=== PATIENT | female | born 1970 | race Caucasian/White ===

== ENCOUNTER 2017-03-17 11:04 | Emergency (ER) | payer BC ==
--- NOTE | 2017-03-17 11:33 | ERPHSYRPT ---
- History of Present Illness Time Seen by Provider: 03/17/17 11:27 Historian: patient Exam Limitations: no limitations Patient Subjective Stated Complaint: pt here for abd pain to left side that radiates to right side, pain for two days, some nausea,pt recently treated with flagyl for infection, low grade fever last night Triage Nursing Assessment: pt alert, resp easy, skin w/d pink, abd soft, no edema Physician History: The patient is a 46-year-old obese female with a friend complaining of worsening abdominal pain, diarrhea, and constipation for 2 days. She was nauseated this morning. She did not vomit. She thinks this might be diverticulitis because it feels the same way it did 2 years ago when she had diverticulitis. The left side of her abdomen hurts. 2 weeks ago she had a gynecologic exam and a infection was found for which she was given Flagyl for one week. She has been off the Flagyl for one week now. Her past medical history is significant for diverticulitis, hypertension, high cholesterol, depression, and . Timing/Duration: day(s) (2), gradual onset, worse Activities at Onset: none Quality: aching, sharpness Abdominal Pain Onset Location: LLQ Pain Radiation: no radiation Severity of Pain-Max: moderate Severity of Pain-Current: moderate Modifying Factors: Improves With: nothing Associated Symptoms: diarrhea, nausea, No vomiting Previous symptoms: same symptoms as today Allergies/Adverse Reactions: nitrofurantoin macrocrystalline [From Macrodantin] Allergy (Mild, Verified 03/17 11:10) Hives sulfamethoxazole [From Bactrim] Allergy (Mild, Verified 03/17/17 11:10) Diarrhea trimethoprim [From Bactrim] Allergy (Mild, Verified 03/17/17 11:10) Diarrhea Home Medications: Melatonin/Pyridoxine HCl (B6) [Melatonin 5 mg Tablet] 1 each PO HS PRN PRN 01/22 [History] Aspirin [Aspir-Low] 81 mg DAILY 03/17/17 [History] Atorvastatin Calcium [Lipitor 40Mg] 80 mg DAILY 03/17/17 [History] Losartan Potassium [Cozaar] 25 mg DAILY 03/17/17 [History] Paroxetine HCl [Paxil] 10 mg DAILY 03/17/17 [History] Hx Tetanus, Diphtheria Vaccination/Date Given: Yes Hx Influenza Vaccination/Date Given: Yes Hx Pneumococcal Vaccination/Date Given: No Immunizations Up to Date: Yes - Review of Systems Constitutional: Fever Eyes: No Symptoms Ears, Nose, & Throat: No Symptoms Respiratory: No Cough, No Dyspnea Cardiac: No Chest Pain, No Edema, No Syncope Abdominal/Gastrointestinal: Abdominal Pain, Nausea, Constipation, No Vomiting Genitourinary Symptoms: No Dysuria Musculoskeletal: No Back Pain, No Neck Pain Skin: No Rash Neurological: No Dizziness, No Focal Weakness, No Sensory Changes Psychological: No Symptoms Endocrine: No Symptoms Hematologic/Lymphatic: No Symptoms Immunological/Allergic: No Symptoms All Other Systems: Reviewed and Negative - Past Medical History Pertinent Past Medical History: Yes Neurological History: Migraines ENT History: No Pertinent History Cardiac History: High Cholesterol, Hypertension Respiratory History: No Pertinent History Endocrine Medical History: No Pertinent History Musculoskeletal History: No Pertinent History GI Medical History: Diverticulosis, Diverticulitis History: Other Psycho-Social History: No Pertinent History Female Reproductive Disorders: No Pertinent History Other Medical History: FREQUENT UTIS - Past Surgical History Past Surgical History: Yes Neuro Surgical History: No Pertinent History Cardiac: No Pertinent History Respiratory: No Pertinent History Gastrointestinal: No Pertinent History Genitourinary: No Pertinent History Musculoskeletal: No Pertinent History Female Surgical History: Section, Other Other Surgical History: ABLATION. TONSILS ET ADNOIDS - Social History Smoking Status: Never smoker How long have you smoked: 3-4 years Exposure to second hand smoke: No Drug Use: none Patient Lives Alone: No - Female History Hx Last Menstrual Period: post - Nursing Vital Signs Nursing Vital Signs: Initial Vital Signs Temperature 97.8 F 03/17/17 11:11 Pulse Rate 80 03/17/17 11:11 Respiratory Rate 16 03/17/17 11:11 Blood Pressure 140/50 03/17/17 11:11 O2 Sat by Pulse Oximetry 97 03/17/17 11:11 Pain Scale Pain Intensity 6 - Physical Exam General Appearance: mild distress Eye Exam: PERRL/EOMI, eyes nml inspection Ears, Nose, Throat Exam: normal ENT inspection, pharynx normal, moist mucous membranes Neck Exam: normal inspection, non-tender, supple, full range of motion Respiratory Exam: normal breath sounds, lungs clear, No respiratory distress Cardiovascular Exam: regular rate/rhythm, normal heart sounds Gastrointestinal/Abdomen Exam: tenderness (LLQ), other (obese) Pelvic Exam: not done Rectal Exam: not done Back Exam: normal inspection, normal range of motion, No CVA tenderness, No vertebral tenderness Extremity Exam: normal inspection, normal range of motion, pelvis stable Neurologic Exam: alert, oriented x 3, cooperative, normal mood/affect, nml cerebellar function, sensation nml, No motor deficits Skin Exam: normal color, warm, dry SpO2 Interpretation: normal SpO2: 97 Oxygen Delivery: Room Air - CT Exams Abdomen/Pelvis CT Interpretation: Tele-radiologist Report, Other (stable colonic diverticulosis. no new acute abd/pelvic abnormalities per Dr Lanier.) Ordered Tests: Active Orders 24 hr Category Date Time Status IV Insertion STAT Care 03/17/17 11:37 Active ABDOMEN AND PELVIS W/0 CONTRAS [CT] Stat Exams 03/17/17 11:38 Completed CBC W DIFF Stat Lab 03/17/17 11:40 Completed CMP Stat Lab 03/17/17 11:40 Completed CULTURE,URINE Stat Lab 03/17/17 11:40 Received HCG QUALITATIVE,SERUM Stat Lab 03/17/17 11:40 Completed LIPASE Stat Lab 03/17/17 11:40 Completed Lactic Acid Stat Lab 03/17/17 11:41 Completed Occult Blood,Stool Other Stat Lab 03/17/17 12:28 Completed UA W/ MICROSCOPIC Stat Lab 03/17/17 11:40 Completed Medication Summary Discontinued Medications Generic Name Dose Route Start Last Admin Trade Name Freq PRN Reason Stop Dose Admin Sodium Chloride 1,000 mls @ 999 mls/hr 03/17/17 11:37 03/17/17 11:45 Sodium Chloride 0.9% 1000 Ml IV 03/17/17 12:37 999 mls/hr .Q1H1M STA Administration Sodium Chloride Confirm 03/17/17 11:45 Sodium Chloride 0.9% 1000 Ml Administered 03/17/17 11:46 Dose 1,000 mls @ ud .ROUTE .STK-MED ONE Morphine Sulfate 2 mg 03/17/17 11:37 03/17/17 11:46 Morphine Sulfate 2 Mg Inj IV 03/17/17 11:38 2 mg STAT ONE Administration Morphine Sulfate Confirm 03/17/17 11:44 Morphine Sulfate 2 Mg Inj Administered 03/17/17 11:45 Dose 2 mg .ROUTE .STK-MED ONE Ondansetron HCl 4 mg 03/17/17 11:37 03/17/17 11:45 Zofran 4 Mg/2 Ml Vial IV 03/17/17 11:38 4 mg STAT ONE Administration Ondansetron HCl Confirm 03/17/17 11:44 Zofran 4 Mg/2 Ml Vial Administered 03/17/17 11:45 Dose 4 mg .ROUTE .STK-MED ONE Lab/Rad Data: Laboratory Result Diagrams 03/17/17 11:40 03/17/17 11:40 Laboratory Results 03/17/17 03/17/17 03/17/17 Range/Units 12:28 11:41 11:40 WBC (4.0-10.5) K/mm3 RBC (4.1-5.4) M/mm3 Hgb (12.0-16.0) gm/dl Hct (35-47) % MCV (78-100) fl MCH (26-32) pg MCHC (32-36) g/dl RDW (11.5-14.0) % Plt Count (150-450) K/mm3 MPV (6-9.5) fl Gran % (36.0-66.0) % Lymphocytes % (24.0-44.0) % Monocytes % (0.0-12.0) % Eosinophils % (0.00-5.0) % Basophils % (0.0-0.4) % Basophils # (0-0.4) Sodium (136-145) mEq/L Potassium (3.5-5.1) mEq/L Chloride (98-107) mEq/L Carbon Dioxide (21-32) mEq/L Anion Gap (5-15) MEQ/L BUN (9-20) mg/dL Creatinine (0.55-1.30) mg/dl Estimated GFR ML/MIN Glucose (70-110) MG/DL Lactic Acid 0.7 (0.4-2.0) Calcium (8.5-10.1) mg/dL Total Bilirubin (0.2-1.0) mg/dL AST (15-37) U/L ALT (12-78) U/L Alkaline Phosphatase (46-116) U/L Serum Total Protein (6.4-8.2) gm/dL Albumin (3.4-5.0) g/dL Lipase (73-393) U/L Serum , Qual NEGATIVE (Negative) Ur Collection Type Urine Color (YELLOW) Urine Appearance (CLEAR) Urine pH (5-6) Ur Specific Franklin (1.005-1.025) Urine Protein (Negative) Urine Ketones (NEGATIVE) Urine Blood (0-5) Yemi/ul Urine Nitrite (NEGATIVE) Urine Bilirubin (NEGATIVE) Urine Urobilinogen (0-1) mg/dL Ur Leukocyte Esterase (NEGATIVE) Urine Microscopic RBC (0-2) /HPF Urine Microscopic WBC (0-5) /HPF Ur Epithelial Cells (FEW) /HPF Urine Bacteria (NEGATIVE) /HPF Urine Culture Reflexed (NO) Urine Glucose (NEGATIVE) mg/dL Stool Occult Blood NEGATIVE (Negative) Specimen Received 03/17/17 03/17/17 03/17/17 Range/Units 11:40 11:40 11:40 WBC 5.2 (4.0-10.5) K/mm3 RBC 3.98 L (4.1-5.4) M/mm3 Hgb 11.8 L (12.0-16.0) gm/dl Hct 36.6 (35-47) % MCV 92.0 (78-100) fl MCH 29.6 (26-32) pg MCHC 32.2 (32-36) g/dl RDW 12.9 (11.5-14.0) % Plt Count 222 (150-450) K/mm3 MPV 10.2 H (6-9.5) fl Gran % 72.7 H (36.0-66.0) % Lymphocytes % 16.8 L (24.0-44.0) % Monocytes % 8.6 (0.0-12.0) % Eosinophils % 1.7 (0.00-5.0) % Basophils % 0.2 (0.0-0.4) % Basophils # 0.01 (0-0.4) Sodium 142 (136-145) mEq/L Potassium 4.2 (3.5-5.1) mEq/L Chloride 106 (98-107) mEq/L Carbon Dioxide 27.1 (21-32) mEq/L Anion Gap 12.7 (5-15) MEQ/L BUN 11 (9-20) mg/dL Creatinine 0.69 (0.55-1.30) mg/dl Estimated GFR > 60 ML/MIN Glucose 91 (70-110) MG/DL Lactic Acid (0.4-2.0) Calcium 8.7 (8.5-10.1) mg/dL Total Bilirubin 0.80 (0.2-1.0) mg/dL AST 18 (15-37) U/L ALT 22 (12-78) U/L Alkaline Phosphatase 107 (46-116) U/L Serum Total Protein 6.9 (6.4-8.2) gm/dL Albumin 3.7 (3.4-5.0) g/dL Lipase 85 (73-393) U/L Serum , Qual (Negative) Ur Collection Type VOID Urine Color YELLOW (YELLOW) Urine Appearance CLEAR (CLEAR) Urine pH 6.0 (5-6) Ur Specific Franklin 1.010 (1.005-1.025) Urine Protein NEGATIVE (Negative) Urine Ketones NEGATIVE (NEGATIVE) Urine Blood 50 (0-5) Yemi/ul Urine Nitrite NEGATIVE (NEGATIVE) Urine Bilirubin NEGATIVE (NEGATIVE) Urine Urobilinogen NORMAL (0-1) mg/dL Ur Leukocyte Esterase 1+ (NEGATIVE) Urine Microscopic RBC 2-5 (0-2) /HPF Urine Microscopic WBC 2-5 (0-5) /HPF Ur Epithelial Cells MODERATE (FEW) /HPF Urine Bacteria MODERATE (NEGATIVE) /HPF Urine Culture Reflexed YES (NO) Urine Glucose NEGATIVE (NEGATIVE) mg/dL Stool Occult Blood (Negative) Specimen Received 03/17/2017 1155 - Progress Progress: unchanged Counseled pt/family regarding: lab results, diagnosis, need for follow-up, rad results - Departure Time of Disposition: 13:47 Departure Disposition: Home Clinical Impression: Abdominal pain Condition: Stable Critical Care Time: No Referrals: KILLIAN PLASENCIA NP [Primary Care Provider] - Additional Instructions: You have abdominal pain. You were given morphine 2 mg, Zofran 4 mg, and fluids by IV in the ER. The CT scan of the abdomen and pelvis showed stable colonic diverticulosis without evidence of diverticulitis. Follow-up in one to 2 days if no improvement.
[2017-03-17] MEDS ORDERED: MORPHINE SULFATE 2 MG INJ IV ONE (11:37)
[2017-03-17] MEDS ORDERED: Zofran 4 MG/2 ML VIAL IV ONE (11:37)
[2017-03-17] MEDS ORDERED: Sodium Chloride 0.9% 1000 ML 1,000 ML IV STA (11:37)
[2017-03-17] MEDS ORDERED: MORPHINE SULFATE 2 MG INJ ONE (11:44)
[2017-03-17] MEDS ORDERED: Zofran 4 MG/2 ML VIAL ONE (11:44)
[2017-03-17] MEDS ORDERED: Sodium Chloride 0.9% 1000 ML 1,000 ML ONE (11:45)
[2017-03-17 11:46] LABS: BASOPHIL % 0.2 % (0.0-0.4); Eosinophil % 1.7 % (0.00-5.0); Granulocytes % 72.7 % (36.0-66.0); Lymphocytes % 16.8 % (24.0-44.0); Mean Corpuscular Hemoglobin 29.6 pg (26-32); Mean Platelet Volume 10.2 fl (6-9.5); Monocytes % 8.6 % (0.0-12.0); Platelet Count 222 K/mm3 (150-450); Red Blood Count 3.98 M/mm3 (4.1-5.4); Red Cell Distribution Width 12.9 % (11.5-14.0); White Blood Count 5.2 K/mm3 (4.0-10.5)
[2017-03-17 12:10] LABS: Collection Type VOID; Glucose NEGATIVE (NEGATIVE); Leukocyte Esterase 1+ (NEGATIVE)
[2017-03-17 12:11] LABS: ADD URINE CULTURE? YES (NO); Bacteria MODERATE /HPF (NEGATIVE); Bilirubin NEGATIVE (NEGATIVE); Blood 50 Ery/ul (0-5); COMPLETE URINE MICROSCOPIC? YES; Epithelial Cells MODERATE /HPF (FEW)
[2017-03-17 12:19] LABS: ALBUMIN 3.7 g/dL (3.4-5.0); ALKALINE PHOSPHATASE 107 U/L (46-116); ANION GAP 12.7 MEQ/L (5-15); BLOOD UREA NITROGEN 11 mg/dL (9-20); CHLORIDE 106 mEq/L (98-107); Carbon Dioxide 27.1 mEq/L (21-32); Glucose 91 MG/DL (70-110); LIPASE 85 U/L (73-393); Potassium 4.2 mEq/L (3.5-5.1); SGOT/AST 18 U/L (15-37); SGPT/ALT 22 U/L (12-78); SODIUM 142 mEq/L (136-145); Total Protein 6.9 gm/dL (6.4-8.2)
--- NOTE | 2017-03-17 12:40 | XRAY ---
Indication: Left lower quadrant pain. History of diverticulitis. Multiple contiguous axial images obtained through the abdomen and pelvis without contrast as ordered. Comparison: October 21, 2014. Lung bases clear with again incidental left lower lobe calcified granuloma. Heart is not enlarged. Noncontrasted stomach and bowel loops appear nonobstructed. Again mild scattered colonic diverticulosis without diverticulitis. Appendix not seen. No free fluid/air. Spleen remains enlarged today measuring 13.7 cm in greatest axial dimension. Stable fatty liver. Remaining liver, gallbladder, pancreas, spleen, adrenal glands, kidneys, ureters, bladder, and uterus appear unremarkable for noncontrast exam. Minimal aortoiliac calcifications without AAA. Osseous structures intact again with minimal degenerative changes throughout the spine. Impression: 1. Stable colonic diverticulosis, fatty liver, and splenomegaly. 2. No new or acute intra-abdominal/pelvic abnormalities on this noncontrast exam. CT DI 23.68
[2017-03-17 13:59] VITALS: BP 123/48; PULSE 77; O2SAT 77
== END 2017-03-17 13:59 | disposition home or self-care (01) ==
LOC: ED 11:04
DX: R10.32 Left lower quadrant pain (principal); R19.7 Diarrhea, unspecified; K59.00 Constipation, unspecified; K57.30 Diverticulosis of large intestine without perforation or abscess without bleeding
CPT/HCPCS: 36000; 36415; 74176; 80053; 81000; 82272; 83605; 83690; 84703; 85025; 87077; 87086; 87186; 96360; 96374; 96375; 99284; J2270; J2405

== ENCOUNTER 2018-02-13 14:37 | Emergency (ER) | payer BC ==
--- NOTE | 2018-02-13 14:58 | ERPHSYRPT ---
- History of Present Illness Time Seen by Provider: 02/13/18 14:52 Historian: patient Exam Limitations: no limitations Patient Subjective Stated Complaint: Pt states "It all started on . I am having belly pain and some bloody diarrhea." Triage Nursing Assessment: Pt alert and oriented X 3, skin pwd. Pt ambulatesi with an upright steady gait, able to speak in clear full sentences. PT in no apparent respiratory distress. Physician History: The patient is a 47-year-old morbidly obese female complaining of left back pain and left-sided abdominal pain that began 3 days ago. She had diarrhea on Wednesday. No diarrhea on Wednesday. Today she's had 2 loose stools that were bloody. Yesterday she also had low-grade fever. She was nauseated. She has a history of diverticulitis and is concerned that she has diverticulitis again. Her past medical history is significant for diverticulitis and hypertension. Timing/Duration: day(s) (3), gradual onset, worse Activities at Onset: none Quality: aching, sharpness Abdominal Pain Onset Location: LUQ, LLQ Pain Radiation: groin Severity of Pain-Max: moderate Severity of Pain-Current: moderate Modifying Factors: Improves With: analgesics Associated Symptoms: diarrhea, nausea, No vomiting Previous symptoms: same symptoms as today Allergies/Adverse Reactions: nitrofurantoin macrocrystalline [From Macrodantin] Allergy (Mild, Verified 03/17 11:10) Hives sulfamethoxazole [From Bactrim] Allergy (Mild, Verified 03/17/17 11:10) Diarrhea trimethoprim [From Bactrim] Allergy (Mild, Verified 03/17/17 11:10) Diarrhea Home Medications: Melatonin/Pyridoxine HCl (B6) [Melatonin 5 mg Tablet] 1 each PO HS PRN PRN 01/22 [History] Atorvastatin Calcium [Lipitor 40Mg] 80 mg PO DAILY 03/17/17 [History] Paroxetine HCl [Paxil] 10 mg PO DAILY 03/17/17 [History] Hx Tetanus, Diphtheria Vaccination/Date Given: No Hx Influenza Vaccination/Date Given: No Hx Pneumococcal Vaccination/Date Given: No Immunizations Up to Date: Yes - Review of Systems Constitutional: No Fever, No Chills Eyes: No Symptoms Ears, Nose, & Throat: No Symptoms Respiratory: No Cough, No Dyspnea Cardiac: No Chest Pain, No Edema, No Syncope Abdominal/Gastrointestinal: Abdominal Pain, Nausea, Diarrhea, Melena, No Vomiting Genitourinary Symptoms: No Dysuria Musculoskeletal: No Back Pain, No Neck Pain Skin: No Rash Neurological: No Dizziness, No Focal Weakness, No Sensory Changes Psychological: No Symptoms Endocrine: No Symptoms Hematologic/Lymphatic: No Symptoms Immunological/Allergic: No Symptoms All Other Systems: Reviewed and Negative - Past Medical History Pertinent Past Medical History: Yes Neurological History: Migraines ENT History: No Pertinent History Cardiac History: High Cholesterol, Hypertension Respiratory History: No Pertinent History Endocrine Medical History: No Pertinent History Musculoskeletal History: No Pertinent History GI Medical History: Diverticulosis, Diverticulitis History: Other Psycho-Social History: No Pertinent History Female Reproductive Disorders: No Pertinent History Other Medical History: FREQUENT UTIS - Past Surgical History Past Surgical History: Yes Neuro Surgical History: No Pertinent History Cardiac: No Pertinent History Respiratory: No Pertinent History Gastrointestinal: No Pertinent History Genitourinary: No Pertinent History Musculoskeletal: No Pertinent History Female Surgical History: Section, Other Other Surgical History: ABLATION. TONSILS ET ADNOIDS - Social History Smoking Status: Former smoker How long have you smoked: 3-4 years Exposure to second hand smoke: Yes Drug Use: none Patient Lives Alone: No - Female History Hx Last Menstrual Period: ablasion Hx Now: No - Nursing Vital Signs Nursing Vital Signs: Initial Vital Signs Temperature 98.9 F 02/13/18 14:45 Pulse Rate 88 02/13/18 14:45 Respiratory Rate 18 02/13/18 14:45 Blood Pressure 180/110 02/13/18 14:45 O2 Sat by Pulse Oximetry 97 02/13/18 14:45 Pain Scale Pain Intensity 3 - Physical Exam General Appearance: mild distress, obese Eye Exam: PERRL/EOMI, eyes nml inspection Ears, Nose, Throat Exam: normal ENT inspection, pharynx normal, moist mucous membranes Neck Exam: normal inspection, non-tender, supple, full range of motion Respiratory Exam: normal breath sounds, lungs clear, No respiratory distress Cardiovascular Exam: regular rate/rhythm, normal heart sounds Gastrointestinal/Abdomen Exam: tenderness (left side) Pelvic Exam: not done Rectal Exam: deferred (deferred to nurse: external and internal hemorrhoids.), hemorrhoids, No decreased tone Back Exam: normal inspection, normal range of motion, No CVA tenderness, No vertebral tenderness Extremity Exam: normal inspection, normal range of motion, pelvis stable Neurologic Exam: alert, oriented x 3, cooperative, normal mood/affect, nml cerebellar function, sensation nml, No motor deficits Skin Exam: normal color, warm, dry SpO2 Interpretation: normal SpO2: 97 Oxygen Delivery: Room Air - CT Exams Abdomen/Pelvis CT Interpretation: Tele-radiologist Report (per Dr Hooks), diverticulitis ( mild diverticulitis in sigmoid colon) Ordered Tests: Active Orders 24 hr Category Date Time Status Manager Of Revenue STAT Care 02/13/18 15:09 Active Clean Catch Urine Specimen STAT Care 02/13/18 14:59 Active EKG-ER Only STAT Care 02/13/18 15:09 Active IV Insertion STAT Care 02/13/18 14:59 Active ABDOMEN AND PELVIS W/0 CONTRAS [CT] Stat Exams 02/13/18 15:16 Taken CBC W DIFF Stat Lab 02/13/18 15:00 Completed CMP Stat Lab 02/13/18 15:00 Completed HCG QUALITATIVE,SERUM Stat Lab 02/13/18 15:00 Completed LIPASE Stat Lab 02/13/18 15:00 Completed Lactic Acid Stat Lab 02/13/18 14:59 Completed Occult Blood,Stool Other Stat Lab 02/13/18 16:20 Completed UA W/RFX UR CULTURE Stat Lab 02/13/18 14:45 Completed Medication Summary Generic Name Dose Route Start Last Admin Trade Name Freq PRN Reason Stop Dose Admin Ceftriaxone Sodium/Dextrose 1 g in 50 mls @ 100 mls/hr 02/13/18 17:06 Rocephin 1 Gm-D5w 50 Ml Bag IV 02/13/18 17:35 STAT STA Discontinued Medications Generic Name Dose Route Start Last Admin Trade Name Freq PRN Reason Stop Dose Admin Sodium Chloride 1,000 mls @ 999 mls/hr 02/13/18 14:59 02/13/18 16:24 Sodium Chloride 0.9% 1000 Ml IV 02/13/18 15:59 Infused .Q1H1M STA Infusion Sodium Chloride Confirm 02/13/18 15:12 Sodium Chloride 0.9% 1000 Ml Administered 02/13/18 15:13 Dose 1,000 mls @ ud .ROUTE .STK-MED ONE Morphine Sulfate 4 mg 02/13/18 14:59 02/13/18 15:16 Morphine Sulfate 4 Mg Inj IV 02/13/18 15:00 4 mg STAT ONE Administration Morphine Sulfate Confirm 02/13/18 15:12 Morphine Sulfate 4 Mg Inj Administered 02/13/18 15:13 Dose 4 mg .ROUTE .STK-MED ONE Ondansetron HCl 4 mg 02/13/18 14:59 02/13/18 15:16 Zofran 4 Mg/2 Ml Vial IV 02/13/18 15:00 4 mg STAT ONE Administration Ondansetron HCl Confirm 02/13/18 15:12 Zofran 4 Mg/2 Ml Vial Administered 02/13/18 15:13 Dose 4 mg .ROUTE .STK-MED ONE Lab/Rad Data: Laboratory Result Diagrams 02/13/18 15:00 02/13/18 15:00 Laboratory Results 02/13/18 02/13/18 02/13/18 Range/Units 16:20 15:00 15:00 WBC (4.0-10.5) K/mm3 RBC (4.1-5.4) M/mm3 Hgb (12.0-16.0) gm/dl Hct (35-47) % MCV (78-100) fl MCH (26-32) pg MCHC (32-36) g/dl RDW (11.5-14.0) % Plt Count (150-450) K/mm3 MPV (6-9.5) fl Gran % (36.0-66.0) % Eos # (Auto) (0-0.5) Absolute Lymphs (auto) (1.0-4.6) Absolute Monos (auto) (0.0-1.3) Lymphocytes % (24.0-44.0) % Monocytes % (0.0-12.0) % Eosinophils % (0.00-5.0) % Basophils % (0.0-0.4) % Absolute Granulocytes (1.4-6.9) Basophils # (0-0.4) Sodium 137 (137-145) mmol/L Potassium 4.2 (3.5-5.1) mmol/L Chloride 103 (98-107) mmol/L Carbon Dioxide 28 (22-30) mmol/L Anion Gap 9.9 (5-15) MEQ/L BUN 11 (7-17) mg/dL Creatinine 0.61 (0.52-1.04) mg/dL Estimated GFR > 60.0 ML/MIN Glucose 90 (74-106) mg/dL Lactic Acid (0.4-2.0) Calcium 9.5 (8.4-10.2) mg/dL Total Bilirubin 0.60 (0.2-1.3) mg/dL AST 22 (14-36) U/L ALT 19 (0-35) U/L Alkaline Phosphatase 86 (38-126) U/L Serum Total Protein 7.3 (6.3-8.2) g/dL Albumin 4.0 (3.5-5.0) g/dL Lipase 56 (23-300) U/L Serum , Qual NEGATIVE (Negative) Urine Color (YELLOW) Urine Appearance (CLEAR) Urine pH (5-6) Ur Specific Drain (1.005-1.025) Urine Protein (Negative) Urine Ketones (NEGATIVE) Urine Blood (0-5) Yemi/ul Urine Nitrite (NEGATIVE) Urine Bilirubin (NEGATIVE) Urine Urobilinogen (0-1) mg/dL Ur Leukocyte Esterase (NEGATIVE) Urine WBC (Auto) (0-5) /HPF U Epithel Cells (Auto) (FEW) /HPF Urine Bacteria (Auto) (NEGATIVE) /HPF Urine Mucus (Auto) (NEGATIVE) /HPF Urine Culture Reflexed (NO) Urine Glucose (NEGATIVE) mg/dL Stool Occult Blood POSITIVE (Negative) 02/13/18 02/13/18 02/13/18 Range/Units 15:00 14:59 14:45 WBC 7.8 (4.0-10.5) K/mm3 RBC 4.23 (4.1-5.4) M/mm3 Hgb 12.6 (12.0-16.0) gm/dl Hct 38.0 (35-47) % MCV 89.8 (78-100) fl MCH 29.8 (26-32) pg MCHC 33.2 (32-36) g/dl RDW 13.1 (11.5-14.0) % Plt Count 251 (150-450) K/mm3 MPV 10.4 H (6-9.5) fl Gran % 58.4 (36.0-66.0) % Eos # (Auto) 0.13 (0-0.5) Absolute Lymphs (auto) 2.40 (1.0-4.6) Absolute Monos (auto) 0.70 (0.0-1.3) Lymphocytes % 30.7 (24.0-44.0) % Monocytes % 8.9 (0.0-12.0) % Eosinophils % 1.7 (0.00-5.0) % Basophils % 0.3 (0.0-0.4) % Absolute Granulocytes 4.58 (1.4-6.9) Basophils # 0.02 (0-0.4) Sodium (137-145) mmol/L Potassium (3.5-5.1) mmol/L Chloride (98-107) mmol/L Carbon Dioxide (22-30) mmol/L Anion Gap (5-15) MEQ/L BUN (7-17) mg/dL Creatinine (0.52-1.04) mg/dL Estimated GFR ML/MIN Glucose (74-106) mg/dL Lactic Acid 0.9 (0.4-2.0) Calcium (8.4-10.2) mg/dL Total Bilirubin (0.2-1.3) mg/dL AST (14-36) U/L ALT (0-35) U/L Alkaline Phosphatase (38-126) U/L Serum Total Protein (6.3-8.2) g/dL Albumin (3.5-5.0) g/dL Lipase (23-300) U/L Serum , Qual (Negative) Urine Color STRAW (YELLOW) Urine Appearance CLEAR (CLEAR) Urine pH 7.0 (5-6) Ur Specific Drain 1.009 (1.005-1.025) Urine Protein NEGATIVE (Negative) Urine Ketones NEGATIVE (NEGATIVE) Urine Blood SMALL (0-5) Yemi/ul Urine Nitrite NEGATIVE (NEGATIVE) Urine Bilirubin NEGATIVE (NEGATIVE) Urine Urobilinogen NEGATIVE (0-1) mg/dL Ur Leukocyte Esterase NEGATIVE (NEGATIVE) Urine WBC (Auto) 0-2 (0-5) /HPF U Epithel Cells (Auto) RARE (FEW) /HPF Urine Bacteria (Auto) RARE (NEGATIVE) /HPF Urine Mucus (Auto) SLIGHT (NEGATIVE) /HPF Urine Culture Reflexed NO (NO) Urine Glucose NEGATIVE (NEGATIVE) mg/dL Stool Occult Blood (Negative) - Progress Progress: improved Counseled pt/family regarding: lab results, diagnosis, rad results - Departure Time of Disposition: 17:08 Departure Disposition: Home Clinical Impression: Diverticulitis Condition: Stable Critical Care Time: No Referrals: BARRERA BOOGIE [Primary Care Provider] - Additional Instructions: You have mild early diverticulitis of the sigmoid colon. You were given morphine 4 mg, Zofran 4 mg, Rocephin 1 g, and fluids by IV in the ER. Take Flagyl 500 mg 3 times a day for 10 days. Take ciprofloxacin 500 mg 2 times a day for 10 days. Follow-up with her primary medical doctor in the upcoming week. Prescriptions: Ciprofloxacin [Cipro 500 MG] 1 tab PO BID #20 tablet Metronidazole [Flagyl] 500 mg PO TID #30 tablet
[2018-02-13] MEDS ORDERED: Sodium Chloride 0.9% 1000 ML 1,000 ML IV STA (14:59)
[2018-02-13] MEDS ORDERED: Zofran 4 MG/2 ML VIAL IV ONE (14:59)
[2018-02-13] MEDS ORDERED: MORPHINE SULFATE 4 MG INJ IV ONE (14:59)
[2018-02-13 15:10] LABS: BASOPHIL % 0.3 % (0.0-0.4); Basophil (Absolute #) 0.02 (0-0.4); Eosinophil % 1.7 % (0.00-5.0); Eosinophil (Absolute #) 0.13 (0-0.5); Granulocyte Absolute (ANC) 4.58 (1.4-6.9); Granulocytes % 58.4 % (36.0-66.0); Hemoglobin 12.6 gm/dl (12.0-16.0); Lymphocytes % 30.7 % (24.0-44.0); Mean Cell Volume 89.8 fl (78-100); Mean Corpuscular Hemoglobin 29.8 pg (26-32); Mean Corpuscular Hgb Concent. 33.2 g/dl (32-36); Mean Platelet Volume 10.4 fl (6-9.5); Monocytes % 8.9 % (0.0-12.0); Platelet Count 251 K/mm3 (150-450); Red Blood Count 4.23 M/mm3 (4.1-5.4); Red Cell Distribution Width 13.1 % (11.5-14.0); White Blood Count 7.8 K/mm3 (4.0-10.5)
[2018-02-13] MEDS ORDERED: Zofran 4 MG/2 ML VIAL ONE (15:12)
[2018-02-13] MEDS ORDERED: Sodium Chloride 0.9% 1000 ML 1,000 ML ONE (15:12)
[2018-02-13] MEDS ORDERED: MORPHINE SULFATE 4 MG INJ ONE (15:12)
[2018-02-13 15:17] LABS: Appearance CLEAR (CLEAR); Bilirubin NEGATIVE (NEGATIVE); Blood SMALL Ery/ul (0-5); Glucose NEGATIVE (NEGATIVE); Ketones NEGATIVE (NEGATIVE); Leukocyte Esterase NEGATIVE (NEGATIVE); Nitrite NEGATIVE (NEGATIVE); Protein,Urine Dip NEGATIVE (Negative); Specific Gravity 1.009 (1.005-1.025); Urobilinogen NEGATIVE mg/dL (0-1)
[2018-02-13 15:33] LABS: ALKALINE PHOSPHATASE 86 U/L (38-126); ANION GAP 9.9 MEQ/L (5-15); BLOOD UREA NITROGEN 11 mg/dL (7-17); CHLORIDE 103 mmol/L (98-107); Calcium 9.5 mg/dL (8.4-10.2); Carbon Dioxide 28 mmol/L (22-30); Creatinine 1 0.61 mg/dL (0.52-1.04); Glucose 90 mg/dL (74-106); LIPASE 56 U/L (23-300); Potassium 4.2 mmol/L (3.5-5.1); SGOT/AST 22 U/L (14-36); SGPT/ALT 19 U/L (0-35); SODIUM 137 mmol/L (137-145); Total Protein 7.3 g/dL (6.3-8.2)
[2018-02-13 17:02] VITALS: BP 154/104; PULSE 80
[2018-02-13 17:06] VITALS: O2SAT 97
[2018-02-13] MEDS ORDERED: ROCEPHIN 1 Gm-D5w 50 ml Bag** 1 G/50 ML IVPB IV STA (17:06)
[2018-02-13] MEDS ORDERED: ROCEPHIN 1 Gm-D5w 50 ml Bag** 1 G/50 ML IVPB IV ONE (17:15)
--- NOTE | 2018-02-13 20:21 | XRAY ---
Indication: Left lower quadrant pain. Blood in stool. History of diverticulitis and UTIs. Multiple contiguous axial images obtained through the abdomen and pelvis without contrast as ordered. Comparison: March 17, 2017. Lung bases demonstrate stable left lower lobe calcified granuloma. No infiltrate or effusion. Heart is not enlarged. Noncontrasted stomach and bowel loops appear nonobstructed. No free fluid/air. Again scattered colonic diverticulosis. Query minimal sigmoid colon stranding, possible mild/early diverticulitis. Spleen remains enlarged today measuring 13.6 cm in greatest axial dimension. Stable mild fatty liver. Remaining liver, gallbladder, pancreas, spleen, adrenal glands, kidneys, ureters, bladder, and uterus appear unremarkable for noncontrast exam. There remains minimal aortoiliac calcifications without AAA. Osseous structures intact again with minimal degenerative changes throughout the spine. No ventral or inguinal hernias. Impression: 1. Again colonic diverticulosis. Query mild/early sigmoid diverticulitis. No complications. 2. Stable fatty liver and splenomegaly. 3. Remaining CT abdomen/pelvis without contrast exam is negative. Comment: Preliminary interpretation was made by [facility]. No critical discrepancy. CTDI 35.17
== END 2018-02-13 17:35 | disposition home or self-care (01) ==
LOC: ED 14:37
DX: K57.32 Diverticulitis of large intestine without perforation or abscess without bleeding (principal); R10.12 Left upper quadrant pain; R10.32 Left lower quadrant pain; R19.7 Diarrhea, unspecified; Z79.899 Other long term (current) drug therapy
CPT/HCPCS: 36000; 36415; 74176; 80053; 81001; 82272; 83605; 83690; 84703; 85025; 93005; 93041; 96360; 96365; 96374; 96375; 99284; J0696; J2270; J2405

== ENCOUNTER 2018-12-22 09:10 | Emergency (ER) | payer BC ==
--- NOTE | 2018-12-22 09:16 | ERPHSYRPT ---
- History of Present Illness Time Seen by Provider: 12/22/18 09:16 Source: patient Exam Limitations: no limitations Physician History: 48 y/o white female presents with 2 day h/o rectal bleeding. initially, mild spotting. this am more sig blood with clots. no abd pain. pt has a h/o diverticular dz and diverticulitis twice requiring nonoperative in hospital admission. this is her 4th episode of sig rectal bleeding. pt has never seen a insurance and financial services agent. pt denies liver dz, denies bleeding d/o, denies xs asa or nsaid use, denies anticoag tx. has h/o hemorrhoids but denies perianal itching or pain. pt denies diarrhea and denies vomiting Timing/Duration: day(s) (2) Severity: mild Associated Symptoms: denies symptoms Allergies/Adverse Reactions: nitrofurantoin macrocrystalline [From Macrodantin] Allergy (Mild, Verified 03/17 11:10) Hives sulfamethoxazole [From Bactrim] Allergy (Mild, Verified 03/17/17 11:10) Diarrhea trimethoprim [From Bactrim] Allergy (Mild, Verified 03/17/17 11:10) Diarrhea Home Medications: Melatonin/Pyridoxine HCl (B6) [Melatonin 5 mg Tablet] 1 each PO HS PRN PRN 01/22 [History] Atorvastatin Calcium [Lipitor 40Mg] 80 mg PO DAILY 03/17/17 [History] Paroxetine HCl [Paxil] 10 mg PO DAILY 03/17/17 [History] Albuterol Common Canister [Proventil Common Canister] 1 puff IH DAILY [History] Metoprolol Succinate [Toprol Xl] 50 mg PO DAILY 12/22/18 [History] predniSONE [Prednisone] 20 mg PO DAILY 12/22/18 [History] Hx Tetanus, Diphtheria Vaccination/Date Given: No Hx Influenza Vaccination/Date Given: No Hx Pneumococcal Vaccination/Date Given: No - Review of Systems Constitutional: No Symptoms Eyes: No Symptoms Ears, Nose, & Throat: No Symptoms Respiratory: No Symptoms Cardiac: No Symptoms Abdominal/Gastrointestinal: Hematochezia Genitourinary Symptoms: No Symptoms Musculoskeletal: No Symptoms Skin: No Symptoms Neurological: No Symptoms Psychological: No Symptoms Endocrine: No Symptoms Hematologic/Lymphatic: No Symptoms Immunological/Allergic: No Symptoms All Other Systems: Reviewed and Negative - Past Medical History Pertinent Past Medical History: Yes Neurological History: Migraines ENT History: No Pertinent History Cardiac History: High Cholesterol, Hypertension Respiratory History: No Pertinent History Endocrine Medical History: No Pertinent History Musculoskeletal History: No Pertinent History GI Medical History: Diverticulosis, Diverticulitis History: Other Psycho-Social History: No Pertinent History Female Reproductive Disorders: No Pertinent History Other Medical History: FREQUENT UTIS - Past Surgical History Past Surgical History: Yes Neuro Surgical History: No Pertinent History Cardiac: No Pertinent History Respiratory: No Pertinent History Gastrointestinal: No Pertinent History Genitourinary: No Pertinent History Musculoskeletal: No Pertinent History Female Surgical History: Section, Other Other Surgical History: ABLATION. TONSILS ET ADNOIDS - Social History Smoking Status: Former smoker How long have you smoked: 3-4 years Exposure to second hand smoke: Yes Drug Use: none Patient Lives Alone: No - Nursing Vital Signs Nursing Vital Signs: Initial Vital Signs Temperature 98.7 F 12/22/18 09:13 Pulse Rate 68 12/22/18 09:13 Respiratory Rate 18 12/22/18 09:13 Blood Pressure 158/77 12/22/18 09:13 O2 Sat by Pulse Oximetry 94 L 12/22/18 09:13 Pain Scale Pain Intensity 0 - Physical Exam General Appearance: no apparent distress, alert, anxiety Eye Exam: PERRL/EOMI, eyes nml inspection Ears, Nose, Throat Exam: normal ENT inspection, moist mucous membranes Neck Exam: normal inspection, non-tender, supple Respiratory Exam: normal breath sounds, lungs clear, airway intact, No chest tenderness, No respiratory distress Cardiovascular Exam: regular rate/rhythm, normal heart sounds, normal peripheral pulses Gastrointestinal/Abdomen Exam: soft, normal bowel sounds, No tenderness Pelvic Exam: not done Rectal Exam: not done Back Exam: normal inspection, normal range of motion, No CVA tenderness, No vertebral tenderness Extremity Exam: normal inspection, normal range of motion, pelvis stable Skin Exam: normal color, warm, dry Lymphatic Exam: No adenopathy SpO2 Interpretation: borderline oxygenation O2 Delivery: Room Air Ordered Tests: Active Orders 24 hr Category Date Time Status IV Insertion STAT Care 12/22/18 09:35 Active ABDOMEN AND PELVIS W/0 CONTRAS [CT] Stat Exams 12/22/18 09:36 Completed AMYLASE Stat Lab 12/22/18 09:47 Completed CBC W DIFF Stat Lab 12/22/18 09:47 Completed CMP Stat Lab 12/22/18 09:47 Completed CULTURE,URINE Stat Lab 12/22/18 09:40 Received LIPASE Stat Lab 12/22/18 09:47 Completed Lactic Acid Stat Lab 12/22/18 09:49 Completed PROTIME WITH INR Stat Lab 12/22/18 09:47 Completed UA W/RFX UR CULTURE Stat Lab 12/22/18 09:40 Completed Medication Summary Generic Name Dose Route Start Last Admin Trade Name Nasir PRN Reason Stop Dose Admin Ceftriaxone Sodium/Dextrose 1 g in 50 mls @ 100 mls/hr 12/22/18 10:59 Rocephin 1 Gm-D5w 50 Ml Bag IV 12/22/18 11:28 STAT STA Lab/Rad Data: Laboratory Result Diagrams 12/22/18 09:47 12/22/18 09:47 Laboratory Results 12/22/18 12/22/18 12/22/18 Range/Units 09:49 09:47 09:47 WBC (4.0-10.5) K/mm3 RBC (4.1-5.4) M/mm3 Hgb (12.0-16.0) gm/dl Hct (35-47) % MCV (78-100) fl MCH (26-32) pg MCHC (32-36) g/dl RDW (11.5-14.0) % Plt Count (150-450) K/mm3 MPV (6-9.5) fl Gran % (36.0-66.0) % Eos # (Auto) (0-0.5) Absolute Lymphs (auto) (1.0-4.6) Absolute Monos (auto) (0.0-1.3) Lymphocytes % (24.0-44.0) % Monocytes % (0.0-12.0) % Eosinophils % (0.00-5.0) % Basophils % (0.0-0.4) % Absolute Granulocytes (1.4-6.9) Basophils # (0-0.4) PT 11.9 (9.95-12.35) SECONDS INR 1.05 (0.8-3.0) Sodium 142 (137-145) mmol/L Potassium 4.1 (3.5-5.1) mmol/L Chloride 107 (98-107) mmol/L Carbon Dioxide 29 (22-30) mmol/L Anion Gap 10.9 (5-15) MEQ/L BUN 13 (7-17) mg/dL Creatinine 0.75 (0.52-1.04) mg/dL Estimated GFR > 60.0 ML/MIN Glucose 105 (74-106) mg/dL Lactic Acid 0.9 (0.4-2.0) Calcium 9.9 (8.4-10.2) mg/dL Total Bilirubin 0.80 (0.2-1.3) mg/dL AST 21 (14-36) U/L ALT 21 (0-35) U/L Alkaline Phosphatase 108 (38-126) U/L Serum Total Protein 7.6 (6.3-8.2) g/dL Albumin 4.1 (3.5-5.0) g/dL Amylase 54 (30-110) U/L Lipase 63 (23-300) U/L Urine Color (YELLOW) Urine Appearance (CLEAR) Urine pH (5-6) Ur Specific [place] (1.005-1.025) Urine Protein (Negative) Urine Ketones (NEGATIVE) Urine Blood (0-5) Yemi/ul Urine Nitrite (NEGATIVE) Urine Bilirubin (NEGATIVE) Urine Urobilinogen (0-1) mg/dL Ur Leukocyte Esterase (NEGATIVE) Urine WBC (Auto) (0-5) /HPF Urine RBC (Auto) (0-2) /HPF U Epithel Cells (Auto) (FEW) /HPF Urine Bacteria (Auto) (NEGATIVE) /HPF Urine Mucus (Auto) (NEGATIVE) /HPF Urine Culture Reflexed (NO) Urine Glucose (NEGATIVE) mg/dL 12/22/18 12/22/18 Range/Units 09:47 09:40 WBC 9.5 (4.0-10.5) K/mm3 RBC 4.29 (4.1-5.4) M/mm3 Hgb 13.1 (12.0-16.0) gm/dl Hct 39.8 (35-47) % MCV 92.8 (78-100) fl MCH 30.5 (26-32) pg MCHC 32.9 (32-36) g/dl RDW 12.4 (11.5-14.0) % Plt Count 238 (150-450) K/mm3 MPV 10.9 H (6-9.5) fl Gran % 68.9 H (36.0-66.0) % Eos # (Auto) 0.13 (0-0.5) Absolute Lymphs (auto) 2.03 (1.0-4.6) Absolute Monos (auto) 0.77 (0.0-1.3) Lymphocytes % 21.4 L (24.0-44.0) % Monocytes % 8.1 (0.0-12.0) % Eosinophils % 1.4 (0.00-5.0) % Basophils % 0.2 (0.0-0.4) % Absolute Granulocytes 6.54 (1.4-6.9) Basophils # 0.02 (0-0.4) PT (9.95-12.35) SECONDS INR (0.8-3.0) Sodium (137-145) mmol/L Potassium (3.5-5.1) mmol/L Chloride (98-107) mmol/L Carbon Dioxide (22-30) mmol/L Anion Gap (5-15) MEQ/L BUN (7-17) mg/dL Creatinine (0.52-1.04) mg/dL Estimated GFR ML/MIN Glucose (74-106) mg/dL Lactic Acid (0.4-2.0) Calcium (8.4-10.2) mg/dL Total Bilirubin (0.2-1.3) mg/dL AST (14-36) U/L ALT (0-35) U/L Alkaline Phosphatase (38-126) U/L Serum Total Protein (6.3-8.2) g/dL Albumin (3.5-5.0) g/dL Amylase (30-110) U/L Lipase (23-300) U/L Urine Color DOUGLAS (YELLOW) Urine Appearance CLOUDY (CLEAR) Urine pH 5.0 (5-6) Ur Specific [place] 1.023 (1.005-1.025) Urine Protein 30 (Negative) Urine Ketones NEGATIVE (NEGATIVE) Urine Blood LARGE (0-5) Yemi/ul Urine Nitrite NEGATIVE (NEGATIVE) Urine Bilirubin NEGATIVE (NEGATIVE) Urine Urobilinogen NEGATIVE (0-1) mg/dL Ur Leukocyte Esterase TRACE (NEGATIVE) Urine WBC (Auto) 6-10 (0-5) /HPF Urine RBC (Auto) 3-5 (0-2) /HPF U Epithel Cells (Auto) FEW (FEW) /HPF Urine Bacteria (Auto) MODERATE (NEGATIVE) /HPF Urine Mucus (Auto) MANY (NEGATIVE) /HPF Urine Culture Reflexed YES (NO) Urine Glucose NEGATIVE (NEGATIVE) mg/dL - Progress Progress: improved Progress Note: 12/22/18 11:19 ct abd/pelvis-diverticulosis without diverticulitis. Counseled pt/family regarding: lab results, diagnosis, need for follow-up, rad results - Departure Departure Disposition: Home Clinical Impression: Diverticulosis, UTI (urinary tract infection) Condition: Stable Critical Care Time: No Referrals: KILLIAN PLASENCIA NP [Primary Care Provider] - Additional Instructions: drink plenty of fluids. follow up with insurance and financial services agent today to arrange appointment. return to ED for worsening symptoms. Prescriptions: Ciprofloxacin [Cipro 500 MG] 500 mg PO BID #14 tablet
[2018-12-22 10:02] LABS: INR 1.05 (0.8-3.0); PROTIME 11.9 SECONDS (9.95-12.35)
[2018-12-22 10:03] LABS: Appearance CLOUDY (CLEAR); Bacteria MODERATE /HPF (NEGATIVE); Bilirubin NEGATIVE (NEGATIVE); Blood LARGE Ery/ul (0-5); Epithelial Cells FEW /HPF (FEW); Glucose NEGATIVE (NEGATIVE); Ketones NEGATIVE (NEGATIVE); Leukocyte Esterase TRACE (NEGATIVE); Mucus MANY /HPF (NEGATIVE); Nitrite NEGATIVE (NEGATIVE); Protein,Urine Dip 30 (Negative); Specific Gravity 1.023 (1.005-1.025); Urobilinogen NEGATIVE mg/dL (0-1)
[2018-12-22 10:07] LABS: ALBUMIN 4.1 g/dL (3.5-5.0); ALKALINE PHOSPHATASE 108 U/L (38-126); AMYLASE 54 U/L (30-110); ANION GAP 10.9 MEQ/L (5-15); BLOOD UREA NITROGEN 13 mg/dL (7-17); CHLORIDE 107 mmol/L (98-107); Calcium 9.9 mg/dL (8.4-10.2); Carbon Dioxide 29 mmol/L (22-30); Creatinine 1 0.75 mg/dL (0.52-1.04); Glucose 105 mg/dL (74-106); LIPASE 63 U/L (23-300); Potassium 4.1 mmol/L (3.5-5.1); SGOT/AST 21 U/L (14-36); SGPT/ALT 21 U/L (0-35); SODIUM 142 mmol/L (137-145); Total Protein 7.6 g/dL (6.3-8.2)
[2018-12-22 10:09] LABS: BASOPHIL % 0.2 % (0.0-0.4); Basophil (Absolute #) 0.02 (0-0.4); Eosinophil % 1.4 % (0.00-5.0); Eosinophil (Absolute #) 0.13 (0-0.5); Granulocyte Absolute (ANC) 6.54 (1.4-6.9); Granulocytes % 68.9 % (36.0-66.0); Hematocrit 39.8 % (35-47); Hemoglobin 13.1 gm/dl (12.0-16.0); Lymphocyte (Absolute #) 2.03 (1.0-4.6); Lymphocytes % 21.4 % (24.0-44.0); Mean Cell Volume 92.8 fl (78-100); Mean Corpuscular Hemoglobin 30.5 pg (26-32); Mean Corpuscular Hgb Concent. 32.9 g/dl (32-36); Mean Platelet Volume 10.9 fl (6-9.5); Monocyte (Absolute #) 0.77 (0.0-1.3); Monocytes % 8.1 % (0.0-12.0); Platelet Count 238 K/mm3 (150-450); Red Blood Count 4.29 M/mm3 (4.1-5.4); Red Cell Distribution Width 12.4 % (11.5-14.0); White Blood Count 9.5 K/mm3 (4.0-10.5)
--- NOTE | 2018-12-22 11:11 | XRAY ---
Indication: Blood in stool. History diverticulitis. Multiple contiguous axial images obtained through the abdomen and pelvis without contrast as ordered. Comparison: February 13, 2018. Lung bases remain clear again with incidental left lower lobe calcified granuloma. Heart is not enlarged. Noncontrasted stomach and bowel loops appear nonobstructed. Again there are scattered colonic diverticulosis. No evidence for acute diverticulitis or free fluid/air. Stable fatty liver and 13.7 cm splenomegaly. Remaining liver, gallbladder, pancreas, spleen, adrenal glands, kidneys, ureters, bladder, and uterus appear unremarkable for noncontrast exam. Again minimal aortoiliac calcifications without AAA. Osseous structures remain intact again with minimal degenerative changes throughout the thoracolumbar spine. Impression: 1. Again colonic diverticulosis without diverticulitis, fatty liver, splenomegaly, and left lower lobe calcified granuloma. 2. Remaining CT abdomen/pelvis without contrast exam is negative. CTDI 35.17
[2018-12-22] MEDS ORDERED: ROCEPHIN 1 Gm-D5w 50 ml Bag** 1 G/50 ML IVPB IV ONE (11:20)
[2018-12-22] MEDS: ROCEPHIN 1 Gm-D5w 50 ml Bag** 1 G/50 ML IVPB IV STA (11:23)
[2018-12-22 11:43] LABS: Slide Review 1 YES
[2018-12-22 11:44] VITALS: O2SAT 100
[2018-12-22 12:40] VITALS: BP 143/72; PULSE 57
== END 2018-12-22 12:42 | disposition home or self-care (01) ==
LOC: ED 09:10
DX: K57.90 Diverticulosis of intestine, part unspecified, without perforation or abscess without bleeding (principal); N39.0 Urinary tract infection, site not specified
CPT/HCPCS: 36000; 36415; 74176; 80053; 81001; 82150; 83605; 83690; 85025; 85610; 87077; 87086; 87186; 96365; 99284; J0696

== ENCOUNTER 2020-07-01 07:08 | Emergency (ER) | payer BC ==
--- NOTE | 2020-07-01 07:17 | ERPHSYRPT ---
- History of Present Illness Time Seen by Provider: 07/01/20 07:16 Historian: patient Exam Limitations: no limitations Physician History: This is a morbidly obese 49-year-old white female with a history of hypertension, elevated cholesterol, chronic recurrent abdominal pain including history of diverticulitis and diverticulosis as well as migraine headaches and presents with initial episode of 4 diarrheal stools that had bright red blood in them beginning yesterday afternoon and evening. This morning, she noticed a single episode of hematemesis of dark blood. Patient does take an aspirin a day but does not consume excess aspirin or NSAIDs. She has no bleeding or clotting disorders. She has no liver disease. She has never seen a supply chain technician. She has had a lower endoscopy several years ago but never an upper endoscopy. She has no history of ulcer disease or gastritis. Because of her diarrheal stools yesterday with bright red blood in it, her plan was to contact her primary care doctor today to make an appointment. However, the hematemesis ep isode prompted her to be evaluated in the emergency room. Patient states that she has very little left upper quadrant abdominal discomfort. Timing/Duration: yesterday Quality: pressure Abdominal Pain Onset Location: [facility] Pain Radiation: no radiation Severity of Pain-Max: mild Severity of Pain-Current: mild Associated Symptoms: diarrhea, nausea, vomiting (Single episode of hematemesis this morning) Previous symptoms: same symptoms as today Allergies/Adverse Reactions: nitrofurantoin macrocrystalline [From Macrodantin] Allergy (Mild, Verified 07/01/20 07:22) Hives sulfamethoxazole [From Bactrim] Allergy (Mild, Verified 07/01/20 07:22) Diarrhea trimethoprim [From Bactrim] Allergy (Mild, Verified 07/01/20 07:22) Diarrhea Home Medications: Melatonin/Pyridoxine HCl (B6) [Melatonin 5 mg Tablet] 1 each PO HS PRN PRN 01/22/15 [History] Atorvastatin Calcium [Lipitor 40Mg] 80 mg PO DAILY 03/17/17 [History] PARoxetine HCl [Paxil] 10 mg PO DAILY 03/17/17 [History] Metoprolol Succinate [Toprol Xl] 50 mg PO DAILY 12/22/18 [History] Aspirin 81 gm Chew [Baby Aspirin 81 mg Chew] 1 ea DAILY 07/01/20 [History] Hx Tetanus, Diphtheria Vaccination/Date Given: No Hx Influenza Vaccination/Date Given: No Hx Pneumococcal Vaccination/Date Given: No Travel Risk - International Travel Have you traveled outside of the country in past 3 weeks: No - Coronavirus Screening Are you exhibiting any of the following symptoms?: No Close contact with a COVID-19 positive Pt in past 14-21 Days: No - Review of Systems Constitutional: No Symptoms Eyes: No Symptoms Ears, Nose, & Throat: No Symptoms Respiratory: No Symptoms Cardiac: No Symptoms Abdominal/Gastrointestinal: Abdominal Pain (Mild left upper quadrant pressure), Nausea, Vomiting (Single episode of hematemesis this morning), Diarrhea, Hematemesis Genitourinary Symptoms: No Symptoms Musculoskeletal: No Symptoms Skin: No Symptoms Neurological: No Symptoms Psychological: No Symptoms Endocrine: No Symptoms Hematologic/Lymphatic: No Symptoms Immunological/Allergic: No Symptoms All Other Systems: Reviewed and Negative - Past Medical History Pertinent Past Medical History: Yes Neurological History: Migraines ENT History: No Pertinent History Cardiac History: High Cholesterol, Hypertension Respiratory History: No Pertinent History Endocrine Medical History: No Pertinent History Musculoskeletal History: No Pertinent History GI Medical History: Diverticulosis, Diverticulitis History: Other Psycho-Social History: No Pertinent History Female Reproductive Disorders: No Pertinent History Other Medical History: FREQUENT UTIS - Past Surgical History Past Surgical History: Yes Neuro Surgical History: No Pertinent History Cardiac: No Pertinent History Respiratory: No Pertinent History Gastrointestinal: No Pertinent History Genitourinary: No Pertinent History Musculoskeletal: No Pertinent History Female Surgical History: Section, Other Other Surgical History: ABLATION. TONSILS ET ADNOIDS - Social History Smoking Status: Former smoker How long have you smoked: 3-4 years Exposure to second hand smoke: Yes Drug Use: none Patient Lives Alone: No - Nursing Vital Signs Nursing Vital Signs: Initial Vital Signs Temperature 98.3 F 07/01/20 07:24 Pulse Rate 81 07/01/20 07:24 Respiratory Rate 18 07/01/20 07:24 Blood Pressure 153/79 07/01/20 07:24 O2 Sat by Pulse Oximetry 97 07/01/20 07:24 Pain Scale Pain Intensity 0 - Physical Exam General Appearance: no apparent distress, alert, anxiety, obese Eye Exam: PERRL/EOMI, eyes nml inspection Ears, Nose, Throat Exam: normal ENT inspection, moist mucous membranes Neck Exam: normal inspection, non-tender, supple, full range of motion Respiratory Exam: normal breath sounds, lungs clear, airway intact, No chest tenderness, No respiratory distress Cardiovascular Exam: regular rate/rhythm, normal heart sounds, normal peripheral pulses Gastrointestinal/Abdomen Exam: soft, normal bowel sounds, No tenderness Pelvic Exam: not done Rectal Exam: not done Back Exam: normal inspection, normal range of motion, No CVA tenderness, No vertebral tenderness Extremity Exam: normal inspection, normal range of motion, pelvis stable Neurologic Exam: alert, oriented x 3, cooperative, chain offbearer II-XII nml as tested, normal mood/affect, nml cerebellar function, nml station & gait, sensation nml Skin Exam: normal color, warm, dry Lymphatic Exam: No adenopathy SpO2 Interpretation: normal O2 Delivery: Room Air - Course Nursing assessment & vital signs reviewed: Yes Ordered Tests: Active Orders 24 hr Category Date Time Status IV Insertion STAT Care 07/01/20 07:35 Active ABDOMEN AND PELVIS W/0 CONTRAS [CT] Stat Exams 07/01/20 07:36 Completed AMYLASE Stat Lab 07/01/20 07:41 Completed CBC W DIFF Stat Lab 07/01/20 07:41 Completed CMP Stat Lab 07/01/20 07:41 Completed CULTURE,URINE Stat Lab 07/01/20 07:37 Received LIPASE Stat Lab 07/01/20 07:41 Completed Lactic Acid Stat Lab 07/01/20 07:35 Completed PROTIME WITH INR Stat Lab 07/01/20 07:41 Completed UA W/RFX UR CULTURE Stat Lab 07/01/20 07:37 Completed Medication Summary Discontinued Medications Generic Name Dose Route Start Last Admin Trade Name Nasir PRN Reason Stop Dose Admin Famotidine 20 mg 07/01/20 07:35 07/01/20 07:48 Pepcid 20 Mg Vial IV 07/01/20 07:36 20 mg STAT ONE Administration Famotidine Confirm 07/01/20 07:43 Pepcid 20 Mg Vial Administered 07/01/20 07:44 Dose 20 mg IV .STK-MED ONE Sodium Chloride 1,000 mls @ 999 mls/hr 07/01/20 07:35 07/01/20 07:47 Sodium Chloride 0.9% 1000 Ml IV 07/01/20 08:35 999 mls/hr .Q1H1M STA Administration Sodium Chloride Confirm 07/01/20 07:43 Sodium Chloride 0.9% 1000 Ml Administered 07/01/20 07:44 Dose 1,000 mls @ ud .ROUTE .STK-MED ONE Ondansetron HCl 4 mg 07/01/20 07:35 07/01/20 07:48 Zofran 4 Mg/2 Ml Vial IV 07/01/20 07:36 4 mg STAT ONE Administration Ondansetron HCl Confirm 07/01/20 07:43 Zofran 4 Mg/2 Ml Vial Administered 07/01/20 07:44 Dose 4 mg .ROUTE .STK-MED ONE Lab/Rad Data: Laboratory Result Diagrams 07/01/20 07:41 07/01/20 07:41 Laboratory Results 07/01/20 07/01/20 07/01/20 Range/Units 07:41 07:41 07:41 WBC 6.6 (4.0-10.5) K/mm3 RBC 4.23 (4.1-5.4) M/mm3 Hgb 12.5 (12.0-16.0) gm/dl Hct 39.5 (35-47) % MCV 93.4 (78-100) fl MCH 29.6 (26-32) pg MCHC 31.6 L (32-36) g/dl RDW 12.7 (11.5-14.0) % Plt Count 246 (150-450) K/mm3 MPV 10.7 (7.5-11.0) fl Gran % 50.8 (36.0-66.0) % Eos # (Auto) 0.19 (0-0.5) Absolute Lymphs (auto) 2.34 (1.0-4.6) Absolute Monos (auto) 0.69 (0.0-1.3) Lymphocytes % 35.5 (24.0-44.0) % Monocytes % 10.5 (0.0-12.0) % Eosinophils % 2.9 (0.00-5.0) % Basophils % 0.3 (0.0-0.4) % Absolute Granulocytes 3.35 (1.4-6.9) Basophils # 0.02 (0-0.4) PT 12.2 (9.95-12.35) SECONDS INR 1.08 (0.8-3.0) Sodium 137 (137-145) mmol/L Potassium 4.0 (3.5-5.1) mmol/L Chloride 105 (98-107) mmol/L Carbon Dioxide 25 (22-30) mmol/L Anion Gap 11.6 (5-15) MEQ/L BUN 17 (7-17) mg/dL Creatinine 0.75 (0.52-1.04) mg/dL Estimated GFR > 60.0 ML/MIN Glucose 111 H (74-106) mg/dL Lactic Acid (0.4-2.0) Calcium 9.2 (8.4-10.2) mg/dL Total Bilirubin 0.80 (0.2-1.3) mg/dL AST 26 (14-36) U/L ALT 24 (0-35) U/L Alkaline Phosphatase 99 (38-126) U/L Serum Total Protein 7.4 (6.3-8.2) g/dL Albumin 4.1 (3.5-5.0) g/dL Amylase 47 (30-110) U/L Lipase 86 (23-300) U/L Urine Color (YELLOW) Urine Appearance (CLEAR) Urine pH (5-6) Ur Specific [place] (1.005-1.025) Urine Protein (Negative) Urine Ketones (NEGATIVE) Urine Blood (0-5) Yemi/ul Urine Nitrite (NEGATIVE) Urine Bilirubin (NEGATIVE) Urine Urobilinogen (0-1) mg/dL Ur Leukocyte Esterase (NEGATIVE) Urine WBC (Auto) (0-5) /HPF Urine RBC (Auto) (0-2) /HPF U Hyaline Cast (Auto) (0-2) /LPF U Epithel Cells (Auto) (FEW) /HPF Urine Bacteria (Auto) (NEGATIVE) /HPF Urine Mucus (Auto) (NEGATIVE) /HPF Urine Culture Reflexed (NO) Urine Glucose (NEGATIVE) mg/dL 07/01/20 07/01/20 Range/Units 07:37 07:35 WBC (4.0-10.5) K/mm3 RBC (4.1-5.4) M/mm3 Hgb (12.0-16.0) gm/dl Hct (35-47) % MCV (78-100) fl MCH (26-32) pg MCHC (32-36) g/dl RDW (11.5-14.0) % Plt Count (150-450) K/mm3 MPV (7.5-11.0) fl Gran % (36.0-66.0) % Eos # (Auto) (0-0.5) Absolute Lymphs (auto) (1.0-4.6) Absolute Monos (auto) (0.0-1.3) Lymphocytes % (24.0-44.0) % Monocytes % (0.0-12.0) % Eosinophils % (0.00-5.0) % Basophils % (0.0-0.4) % Absolute Granulocytes (1.4-6.9) Basophils # (0-0.4) PT (9.95-12.35) SECONDS INR (0.8-3.0) Sodium (137-145) mmol/L Potassium (3.5-5.1) mmol/L Chloride (98-107) mmol/L Carbon Dioxide (22-30) mmol/L Anion Gap (5-15) MEQ/L BUN (7-17) mg/dL Creatinine (0.52-1.04) mg/dL Estimated GFR ML/MIN Glucose (74-106) mg/dL Lactic Acid 2.0 (0.4-2.0) Calcium (8.4-10.2) mg/dL Total Bilirubin (0.2-1.3) mg/dL AST (14-36) U/L ALT (0-35) U/L Alkaline Phosphatase (38-126) U/L Serum Total Protein (6.3-8.2) g/dL Albumin (3.5-5.0) g/dL Amylase (30-110) U/L Lipase (23-300) U/L Urine Color DOUGLAS (YELLOW) Urine Appearance CLOUDY (CLEAR) Urine pH 5.0 (5-6) Ur Specific [place] 1.031 (1.005-1.025) Urine Protein 100 (Negative) Urine Ketones NEGATIVE (NEGATIVE) Urine Blood SMALL (0-5) Yemi/ul Urine Nitrite NEGATIVE (NEGATIVE) Urine Bilirubin SMALL (NEGATIVE) Urine Urobilinogen 2 (0-1) mg/dL Ur Leukocyte Esterase NEGATIVE (NEGATIVE) Urine WBC (Auto) 3-5 (0-5) /HPF Urine RBC (Auto) 6-10 (0-2) /HPF U Hyaline Cast (Auto) 6-10 (0-2) /LPF U Epithel Cells (Auto) FEW (FEW) /HPF Urine Bacteria (Auto) FEW (NEGATIVE) /HPF Urine Mucus (Auto) MANY (NEGATIVE) /HPF Urine Culture Reflexed YES (NO) Urine Glucose NEGATIVE (NEGATIVE) mg/dL - Progress Progress: improved, re-examined Progress Note: 07/01/20 08:38 CAT scan of the abdomen pelvis without contrast reveals a new subcentimeter gallstone. There is diverticulosis present but no evidence of diverticulitis. There is no other acute intra-abdominal or intrapelvic findings. 07/01/20 08:53 Medical decision making: This patient is hemodynamically stable. She has had no evidence or episodes of hematemesis or bright red blood per rectum while here in the emergency department. Her work-up shows no anemia and CAT scan of the abdomen pelvis shows nothing acute. We will discharge the patient to home and she is to follow-up with her primary care for further management. We will send a prescription of Zofran to her pharmacy Counseled pt/family regarding: lab results, diagnosis, need for follow-up, rad results - Departure Departure Disposition: Home Clinical Impression: Hematemesis, Diarrheal stools Condition: Stable Critical Care Time: No Referrals: KILLIAN PLASENCIA NP [Primary Care Provider] - Additional Instructions: Drink plenty of fluids. Avoid aspirin use. Call your primary care physician today to make arrangements for follow-up appointment. Prescriptions: Ondansetron HCl [Zofran] 4 mg PO TID PRN #10 tablet PRN Reason: Nausea/Vomiting
[2020-07-01] MEDS ORDERED: Zofran 4 MG/2 ML VIAL ONE (07:43)
[2020-07-01] MEDS ORDERED: Pepcid 20 MG VIAL IV ONE (07:43)
[2020-07-01] MEDS ORDERED: Sodium Chloride 0.9% 1000 ML 1,000 ML ONE (07:43)
[2020-07-01 07:47] LABS: Appearance CLOUDY (CLEAR); Bacteria FEW /HPF (NEGATIVE); Bilirubin SMALL (NEGATIVE); Blood SMALL Ery/ul (0-5); Epithelial Cells FEW /HPF (FEW); Glucose NEGATIVE (NEGATIVE); Ketones NEGATIVE (NEGATIVE); Leukocyte Esterase NEGATIVE (NEGATIVE); Mucus MANY /HPF (NEGATIVE); Nitrite NEGATIVE (NEGATIVE); Protein,Urine Dip 100 (Negative); Specific Gravity 1.031 (1.005-1.025); Urobilinogen 2 mg/dL (0-1)
[2020-07-01] MEDS: Sodium Chloride 0.9% 1000 ML 1,000 ML IV STA (07:47)
[2020-07-01] MEDS: Zofran 4 MG/2 ML VIAL IV ONE (07:48)
[2020-07-01] MEDS: Pepcid 20 MG VIAL IV ONE (07:48)
[2020-07-01 07:53] LABS: Absolute Neutrophil Ct (ANC) 3.35 (1.4-6.9); BASOPHIL % 0.3 % (0.0-0.4); Basophil (Absolute #) 0.02 (0-0.4); Eosinophil % 2.9 % (0.00-5.0); Eosinophil (Absolute #) 0.19 (0-0.5); Hematocrit 39.5 % (35-47); Hemoglobin 12.5 gm/dl (12.0-16.0); INR 1.08 (0.8-3.0); Lymphocyte (Absolute #) 2.34 (1.0-4.6); Lymphocytes % 35.5 % (24.0-44.0); Mean Cell Volume 93.4 fl (78-100); Mean Corpuscular Hemoglobin 29.6 pg (26-32); Mean Corpuscular Hgb Concent. 31.6 g/dl (32-36); Mean Platelet Volume 10.7 fl (7.5-11.0); Monocyte (Absolute #) 0.69 (0.0-1.3); Monocytes % 10.5 % (0.0-12.0); Neutrophil % 50.8 % (36.0-66.0); PROTIME 12.2 SECONDS (9.95-12.35); Platelet Count 246 K/mm3 (150-450); Red Blood Count 4.23 M/mm3 (4.1-5.4); Red Cell Distribution Width 12.7 % (11.5-14.0); White Blood Count 6.6 K/mm3 (4.0-10.5)
[2020-07-01 07:57] LABS: ALBUMIN 4.1 g/dL (3.5-5.0); ALKALINE PHOSPHATASE 99 U/L (38-126); AMYLASE 47 U/L (30-110); ANION GAP 11.6 MEQ/L (5-15); BLOOD UREA NITROGEN 17 mg/dL (7-17); CHLORIDE 105 mmol/L (98-107); Calcium 9.2 mg/dL (8.4-10.2); Carbon Dioxide 25 mmol/L (22-30); Creatinine 1 0.75 mg/dL (0.52-1.04); EST GLOMERULAR FILTRATION RATE > 60.0 ML/MIN; Glucose 111 mg/dL (74-106); LIPASE 86 U/L (23-300); SGOT/AST 26 U/L (14-36); SGPT/ALT 24 U/L (0-35); SODIUM 137 mmol/L (137-145); Total Protein 7.4 g/dL (6.3-8.2)
[2020-07-01 08:14] VITALS: BP 113/78
--- NOTE | 2020-07-01 08:36 | XRAY ---
Indication: Vomiting blood. Multiple contiguous axial images obtained through the abdomen and pelvis without contrast as ordered. Comparison: December 22, 2018. Lung bases remain clear with stable incidental left base calcified granuloma. Heart is not enlarged. Noncontrasted stomach and bowel loops are nonobstructed again with scattered colonic diverticulosis. No free fluid/air. New 7 mm gallstone. Again fatty hepatomegaly measuring 20 cm. Remaining liver, gallbladder, pancreas, spleen, adrenal glands, kidneys, ureters, bladder, and uterus appear unremarkable for noncontrast exam. Stable minimal aortoiliac calcifications without AAA. Osseous structures intact again with minimal degenerative changes throughout the spine. No ventral or inguinal hernias. Impression: 1. New subcentimeter gallstone. 2. Again colonic diverticulosis, fatty hepatomegaly, and old granulomatous disease. 3. Remaining CT abdomen/pelvis without contrast exam is negative.
[2020-07-01 08:58] VITALS: PULSE 68; O2SAT 97
== END 2020-07-01 09:04 | disposition home or self-care (01) ==
LOC: ED 07:08
DX: R10.12 Left upper quadrant pain (principal); K92.0 Hematemesis; R19.7 Diarrhea, unspecified; I10 Essential (primary) hypertension; E78.5 Hyperlipidemia, unspecified; Z79.899 Other long term (current) drug therapy; E66.9 Obesity, unspecified
CPT/HCPCS: 36000; 36415; 74176; 80053; 81001; 82150; 83605; 83690; 85025; 85610; 87077; 87086; 87186; 96374; 96375; 99284; J2405